=== PATIENT | female | born 1955 | race African-American/Black ===

== ENCOUNTER 2017-06-20 06:01 | Inpatient (IN) ==
[2017-06-15 11:44] LABS: Basophils # 0.1 10*3/uL (0.0-0.2); Eosinophils # 0.1 10*3/uL (0.0-0.87); Hematocrit 37.5 VOL% (35.7-47.0); Hemoglobin 11.8 GM/DL (12.0-16.0); Immature Granulocytes % 0.4 %; Immature Granulocytes Absolute 0.03 #; Lymphocytes # 3.6 10*3/uL (1.4-4.0); Lymphocytes % 52.2 % (21.3-54.2); Mean Corpuscular HGB Conc 31.5 GM/DL (32-36); Mean Corpuscular Hemoglobin 26 PG (27-34); Mean Corpuscular Volume 81.5 FL (87-102); Mean Platelet Volume 10.4 FL (9.6-12.0); Monocytes # 0.6 10*3/uL (0.11-0.8); Monocytes % 8.3 % (1.7-12.7); Neutrophils # 2.6 10*3/uL (1.4-7.4); Neutrophils % 37.1 % (38.7-73.9); Platelet Count 246 T/CUMM (130-400); Red Cell Distribution Width 14.3 % (9.3-17.3)
[2017-06-15 11:49] LABS: Apearance,Urine CLEAR (Clear); Bilirubin,Urine Negative (Negative); Blood, Urine Moderate mg/dL (Negative); Glucose,Urine (UA) Negative (Negative); Ketones,Urine Negative (Negative); Mucus,Urine Occasional /LPF (Occasional); Nitrite,Urine Negative (Negative); Protein,Urine 30 MG/DL; RBC,Urine 50 /HPF (0-4); Squamous Epithelial Cell,Urine Occasional /HPF (0-10); Urine Color Yellow (Yellow); Urine Urobilinogen < 2.0 EU/DL (0.2-1.0); WBC,Urine 3 /HPF (0-6)
[2017-06-15 12:08] LABS: Eosinophils 1 % (0-10); Hypochromasia 1+; Lymphocytes 55 % (20-55); Platelet Estimate Normal; Segmented Neutrophils 34 % (50-85); Total Cells Counted 100
[~2017-06-20 06:01] MED LIST: DIAZEPAM 5 MG TABLET PO ONE; FAMOTIDINE 20 MG TABLET PO ONE
[2017-06-20] MEDS ORDERED: SODIUM CHLORIDE 0.9% 50 ML IV ONE (06:03)
[2017-06-20] MEDS ORDERED: DIAZEPAM 5 MG TABLET ONE (06:04)
[2017-06-20] MEDS ORDERED: FAMOTIDINE 20 MG TABLET ONE (06:04)
[2017-06-20] MEDS ORDERED: ALBUTEROL/IPRATROPIUM 3 ML NEB RESP TX ONE (06:39)
[2017-06-20] MEDS: LACTATED RINGERS 1,000 ML IV SCH ×2 (07:00→19:01)
[2017-06-20] MEDS ORDERED: cefOXitin 2,000 MG in SYRINGE 1 EACH IV ONE (07:00)
[2017-06-20] MEDS ORDERED: TISSUE ADHESIVE 1 EACH APPLICATOR TOP ONE (07:57)
[2017-06-20 08:03] LABS: Apearance,Urine CLEAR (Clear); Bilirubin,Urine Negative (Negative); Blood, Urine Negative (Negative); Glucose,Urine (UA) Negative (Negative); Ketones,Urine Negative (Negative); Nitrite,Urine Negative (Negative); Protein,Urine Negative; RBC,Urine 1 /HPF (0-4); Squamous Epithelial Cell,Urine Occasional /HPF (0-10); Urine Color Straw (Yellow); Urine Urobilinogen < 2.0 EU/DL (0.2-1.0); WBC,Urine <1 /HPF (0-6)
[2017-06-20] MEDS ORDERED: ALBUMIN 5% 12.5 GM/250 ML VIAL IV ONE (12:03)
[2017-06-20] MEDS ORDERED: PROPOFOL 200 MG/20 ML VIAL IV ONE (12:03)
[2017-06-20] MEDS ORDERED: MIDAZOLAM 2 MG/2 ML VIAL ONE (12:03)
[2017-06-20] MEDS ORDERED: SEVOFLURANE 1 UNIT/15 MINUTE INH ONE (12:03)
[2017-06-20] MEDS ORDERED: ACETAMINOPHEN 1,000 MG/100 ML VIAL IV ONE (12:04)
[2017-06-20] MEDS ORDERED: GLYCOPYRROLATE 0.4 MG/2 ML VIAL ONE (12:04)
[2017-06-20] MEDS ORDERED: fentaNYL 100 MCG/2 ML VIAL ONE (12:04)
[2017-06-20] MEDS ORDERED: ONDANSETRON 4 MG/2 ML VIAL ONE ×2 (12:04→12:11)
[2017-06-20] MEDS ORDERED: NEOSTIGMINE 10 MG/10 ML VIAL ONE (12:04)
[2017-06-20] MEDS ORDERED: ROCURONIUM 100 MG/10 ML VIAL IV ONE (12:05)
[2017-06-20] MEDS ORDERED: LACTATED RINGERS 2,000 ML IV ONE (12:05)
[2017-06-20] MEDS ORDERED: ALBUTEROL INHALER 8 GM INH ONE (12:05)
[2017-06-20] MEDS ORDERED: HYDROmorphone 2 MG/1 ML VIAL ONE (12:11)
[2017-06-20] MEDS: HYDROmorphone 2 MG/1 ML VIAL IV PRN ×6 (12:11→20:29)
[2017-06-20] MEDS ORDERED: ONDANSETRON 4 MG/2 ML VIAL IV PRN (12:14)
[2017-06-20] MEDS ORDERED: cefOXitin 1,000 MG in SYRINGE 1 EACH IV SCH (18:30)
[2017-06-20] MEDS ORDERED: BENZOCAINE/MENTHOL LOZENGE 18/BOX PO PRN (19:40)
[2017-06-20] MEDS ORDERED: IBUPROFEN 800 MG TABLET PO PRN (19:40)
[2017-06-20] MEDS ORDERED: GLUCAGON 1 MG VIAL IM PRN (19:44)
[2017-06-20] MEDS ORDERED: DEXTROSE 50% 25 GM/50 ML VIAL IV PRN (19:44)
[2017-06-20] MEDS ORDERED: LACTATED RINGERS 1,000 ML IV SCH (20:00)
[2017-06-20] MEDS: ONDANSETRON 4 MG/2 ML VIAL IV PRN (20:26)
[2017-06-20] MEDS: INSULIN REGULAR 100 UNIT/ML SUBCUT SCH (20:29)
[2017-06-20] MEDS: SIMETHICONE CHEW 80 MG TABLET PO PRN (22:08)
[2017-06-21] MEDS: ONDANSETRON 4 MG/2 ML VIAL IV PRN (01:01)
[2017-06-21] MEDS: HYDROmorphone 2 MG/1 ML VIAL IV PRN ×2 (01:03→04:02)
[2017-06-21] MEDS: LACTATED RINGERS 1,000 ML IV SCH ×3 (02:18→21:55)
[2017-06-21] MEDS: ceFAZolin 1,000 MG in SYRINGE 1 EACH IV SCH ×3 (02:19→14:28)
[2017-06-21] MEDS: SIMETHICONE CHEW 80 MG TABLET PO PRN ×2 (04:09→21:36)
[2017-06-21 05:44] LABS: Basophils % 0.3 % (0.0-0.8); Hematocrit 27.2 VOL% (35.7-47.0); Immature Granulocytes % 0.3 %; Immature Granulocytes Absolute 0.03 #; Lymphocytes # 2.1 10*3/uL (1.4-4.0); Mean Corpuscular HGB Conc 33.1 GM/DL (32-36); Mean Corpuscular Hemoglobin 27 PG (27-34); Mean Corpuscular Volume 80.5 FL (87-102); Mean Platelet Volume 10.6 FL (9.6-12.0); Monocytes # 1.1 10*3/uL (0.11-0.8); Monocytes % 10.4 % (1.7-12.7); Platelet Count 192 T/CUMM (130-400); Red Blood Count 3.38 MC/CUMM (3.8-5.5); Red Cell Distribution Width 14.5 % (9.3-17.3); White Blood Count 10.2 T/CUMM (4-12)
[2017-06-21 06:05] LABS: Band Neutrophils 1 % (0-10); Hypochromasia 1+; Lymphocytes 21 % (20-55); Platelet Estimate Adequate; Segmented Neutrophils 66 % (50-85); Total Cells Counted 100
[2017-06-21 06:06] LABS: Microcytosis Slight
[2017-06-21] MEDS: INSULIN REGULAR 100 UNIT/ML SUBCUT SCH (07:39)
[2017-06-21] MEDS: oxyCODONE/ACETAMINOPHEN 5-325 MG TABLET PO PRN ×2 (10:27→17:17)
[2017-06-21] MEDS: metFORMIN 500 MG TABLET PO SCH ×2 (11:30→18:48)
[2017-06-21] MEDS: PREGABALIN 75 MG CAPSULE PO SCH ×2 (14:31→21:35)
[2017-06-21] MEDS: MAGNESIUM HYDROXIDE SUSP 30 ML UDCUP PO PRN ×2 (14:32→21:36)
[2017-06-21] MEDS: ACETAMINOPHEN 325 MG TABLET PO PRN ×2 (17:16→21:37)
[2017-06-21] MEDS: DOCUSATE SODIUM 100 MG CAPSULE PO PRN (21:36)
[2017-06-21] MEDS: PRAVASTATIN 40 MG TABLET PO SCH (21:37)
[2017-06-22] MEDS: oxyCODONE/ACETAMINOPHEN 5-325 MG TABLET PO PRN (02:57)
[2017-06-22] MEDS ORDERED: ALBUTEROL 2.5 MG/3 ML NEB RESP TX PRN (05:58)
[2017-06-22] MEDS ORDERED: metFORMIN 500 MG TABLET PO SCH (07:09)
[2017-06-22] MEDS ORDERED: OLMESARTAN 20 MG TABLET PO SCH (09:00)
[2017-06-22] MEDS ORDERED: KETOROLAC 30 MG/1 ML VIAL ONE (09:55)
[2017-06-22] MEDS: KETOROLAC 30 MG/1 ML VIAL IV SCH ×2 (10:10→15:15)
[2017-06-22] MEDS: MAGNESIUM HYDROXIDE SUSP 30 ML UDCUP PO PRN (10:10)
[2017-06-22] MEDS: PREGABALIN 75 MG CAPSULE PO SCH ×3 (10:11→21:50)
[2017-06-22] MEDS: DOCUSATE SODIUM 100 MG CAPSULE PO PRN (10:12)
[2017-06-22] MEDS: BISACODYL 10 MG SUPP RECTAL PRN (11:45)
[2017-06-22 13:09] LABS: Bilirubin,Total 0.5 MG/DL (0.2-1.0); Calcium 8.5 MG/DL (8.5-10.1); Osmolality,Calculated 277.2 MOS/KG (273-304); Potassium 3.8 MMOL/L (3.5-5.1); Total Protein 6.4 G/DL (6.4-8.3)
[2017-06-22] MEDS: SODIUM CHLORIDE 0.9% 1,000 ML IV SCH (16:30)
[2017-06-22] MEDS ORDERED: METOCLOPRAMIDE 10 MG/2 ML VIAL IV SCH (17:00)
[2017-06-22] MEDS: PANTOPRAZOLE 40 MG VIAL IV SCH ×2 (17:45→22:03)
[2017-06-22] MEDS: ONDANSETRON 4 MG/2 ML VIAL IV PRN ×2 (17:55→22:04)
[2017-06-22 19:01] LABS: Basophils % 0.3 % (0.0-0.8); Eosinophils % 0.1 % (0.00-10.9); Hematocrit 30.3 VOL% (35.7-47.0); Hemoglobin 9.2 GM/DL (12.0-16.0); Immature Granulocytes % 0.6 %; Immature Granulocytes Absolute 0.07 #; Lymphocytes # 2.1 10*3/uL (1.4-4.0); Lymphocytes % 17.5 % (21.3-54.2); Mean Corpuscular HGB Conc 30.4 GM/DL (32-36); Mean Corpuscular Hemoglobin 26 PG (27-34); Mean Corpuscular Volume 84.9 FL (87-102); Mean Platelet Volume 10.8 FL (9.6-12.0); Monocytes # 1.5 10*3/uL (0.11-0.8); Monocytes % 12.4 % (1.7-12.7); NRBC # 0.02 10*3/uL; Neutrophils # 8.1 10*3/uL (1.4-7.4); Neutrophils % 69.1 % (38.7-73.9); Platelet Count 231 T/CUMM (130-400); Red Blood Count 3.57 MC/CUMM (3.8-5.5); Red Cell Distribution Width 14.7 % (9.3-17.3); White Blood Count 11.7 T/CUMM (4-12)
[2017-06-22 19:43] LABS: Band Neutrophils 5 % (0-10); Hypochromasia 2+; Lymphocytes 22 % (20-55); Platelet Estimate Normal; Segmented Neutrophils 59 % (50-85); Total Cells Counted 100
[2017-06-22 21:37] LABS: ABG Base Excess 5.1 MMOL/L (-2.5-2.5); ABG HCO3 28.9 MMOL/L (20-26); ABG Oxygen Saturation 89.3 % (95-100); ABG PCO2 50.8 MM HG (35-48); ABG PH 7.392 (7.35-7.45); ABG TCO2 28.7 MMOL/L (23-27); Allen Test Positive
[2017-06-22] MEDS: PRAVASTATIN 40 MG TABLET PO SCH (21:50)
[2017-06-22 22:00] LABS: Basophils % 0.5 % (0.0-0.8); Hematocrit 26.5 VOL% (35.7-47.0); Hemoglobin 8.5 GM/DL (12.0-16.0); Immature Granulocytes % 0.7 %; Immature Granulocytes Absolute 0.05 #; Lymphocytes # 1.4 10*3/uL (1.4-4.0); Lymphocytes % 18.1 % (21.3-54.2); Mean Corpuscular HGB Conc 32.1 GM/DL (32-36); Mean Corpuscular Hemoglobin 26 PG (27-34); Mean Corpuscular Volume 82.3 FL (87-102); Mean Platelet Volume 10.8 FL (9.6-12.0); Monocytes % 13.5 % (1.7-12.7); Neutrophils # 5.1 10*3/uL (1.4-7.4); Neutrophils % 67.2 % (38.7-73.9); Platelet Count 190 T/CUMM (130-400); Red Blood Count 3.22 MC/CUMM (3.8-5.5); Red Cell Distribution Width 14.6 % (9.3-17.3); White Blood Count 7.6 T/CUMM (4-12)
[2017-06-22] MEDS ORDERED: DEXTROSE 50% 25 GM/50 ML VIAL IV PRN (22:10)
[2017-06-22] MEDS ORDERED: GLUCAGON 1 MG VIAL IM PRN (22:10)
[2017-06-22] MEDS ORDERED: hydrALAZINE 20 MG/1 ML VIAL IV PRN (22:13)
[2017-06-22 22:35] LABS: Lactic Acid 1.8 MMOL/L (0.4-2.0)
[2017-06-22 22:45] LABS: Alanine Aminotransferase 13 U/L (13-56); Alkaline Phosphatase 62 U/L (45-117); Aspartate Amino Transferase 28 U/L (0-37); Blood Urea Nitrogen 25 MG/DL (7-18); Calcium 7.7 MG/DL (8.5-10.1); Glucose 263 MG/DL (74-106); Osmolality,Calculated 280.2 MOS/KG (273-304); Potassium 5.1 MMOL/L (3.5-5.1); Sodium 134 MMOL/L (136-145); Total Protein 6.3 G/DL (6.4-8.3); Troponin I Only 0.026 NG/ML (0.00-0.045)
[2017-06-22 23:00] LABS: Band Neutrophils 11 % (0-10); Lymphocytes 21 % (20-55); Metamyelocytes 4 %; Myelocytes 1 %; Segmented Neutrophils 53 % (50-85); Total Cells Counted 100
[2017-06-22 23:01] LABS: Hypochromasia 3+; Platelet Estimate Normal
[2017-06-22] MEDS: LACTATED RINGERS 1,000 ML IV SCH (23:10)
[2017-06-22] MEDS: HEPARIN DRIP 25,000 UNITS/500 ML PREMIX IV SCH (23:19)
[2017-06-23] MEDS: INSULIN LISPRO 100 UNIT/ML SUBCUT SCH ×4 (00:05→17:29)
[2017-06-23] MEDS: PROMETHAZINE INJ 25 MG in SODIUM CHLORIDE 0.9% 50 ML IV PRN (01:56)
[2017-06-23] MEDS: SODIUM CHLORIDE 0.9% 1,000 ML IV SCH ×5 (03:10→20:32)
[2017-06-23] MEDS: ONDANSETRON 4 MG/2 ML VIAL IV PRN ×2 (03:11→09:31)
[2017-06-23 05:47] LABS: Basophils % 0.7 % (0.0-0.8); Hematocrit 26.3 VOL% (35.7-47.0); Hemoglobin 8.5 GM/DL (12.0-16.0); Immature Granulocytes % 0.7 %; Immature Granulocytes Absolute 0.04 #; Lymphocytes # 1.8 10*3/uL (1.4-4.0); Lymphocytes % 29.5 % (21.3-54.2); Mean Corpuscular HGB Conc 32.3 GM/DL (32-36); Mean Corpuscular Hemoglobin 26 PG (27-34); Mean Corpuscular Volume 81.4 FL (87-102); Mean Platelet Volume 10.7 FL (9.6-12.0); Monocytes # 0.9 10*3/uL (0.11-0.8); Monocytes % 15.6 % (1.7-12.7); Neutrophils # 3.2 10*3/uL (1.4-7.4); Neutrophils % 53.5 % (38.7-73.9); Platelet Count 226 T/CUMM (130-400); Red Blood Count 3.23 MC/CUMM (3.8-5.5); Red Cell Distribution Width 14.6 % (9.3-17.3)
[2017-06-23 05:56] LABS: PT Patient Result 10.5 SECS
[2017-06-23 06:30] LABS: Band Neutrophils 14 % (0-10); Hypochromasia 1+; Lymphocytes 35 % (20-55); Microcytosis 1+; Platelet Estimate Normal; Promyelocytes 1 %; Segmented Neutrophils 35 % (50-85); Total Cells Counted 100
[2017-06-23 06:41] LABS: Osmolality,Calculated 281.1 MOS/KG (273-304); Potassium 4.2 MMOL/L (3.5-5.1)
[2017-06-23 06:52] LABS: % Iron Saturation 5.2 % (18-50); Ferritin 421.4 ng/ml (8-252); Thyroid Stimulating Hormone 1.24 uIU/ml (0.358-3.74)
[2017-06-23] MEDS: PREGABALIN 75 MG CAPSULE PO SCH ×3 (08:24→20:28)
[2017-06-23] MEDS: LEVOFLOXACIN INJ 500 MG in PREMIX 1 EACH IV SCH (08:29)
[2017-06-23] MEDS: CLINDAMYCIN INJ 600 MG in PREMIX 1 EACH IV SCH ×2 (08:29→15:46)
[2017-06-23] MEDS: PANTOPRAZOLE 40 MG VIAL IV SCH ×2 (08:29→20:28)
[2017-06-23] MEDS: HYDROmorphone 2 MG/1 ML VIAL IV PRN (09:25)
[2017-06-23 10:12] LABS: PT Patient Result 10.7 SECS
[2017-06-23 10:16] LABS: Partial Thromboplastin Time 96.9 SECS (0-40)
[2017-06-23 10:38] LABS: Apearance,Urine CLOUDY (Clear); Bilirubin,Urine Negative (Negative); Blood, Urine Moderate mg/dL (Negative); Glucose,Urine (UA) Negative (Negative); Ketones,Urine Negative (Negative); Mucus,Urine Occasional /LPF (Occasional); Nitrite,Urine Negative (Negative); Protein,Urine Negative; RBC,Urine 3 /HPF (0-4); Squamous Epithelial Cell,Urine Moderate /HPF (0-10); Urine Color Yellow (Yellow); Urine Specific Gravity 1.043 (1.001-1.035); Urine Urobilinogen < 2.0 EU/DL (0.2-1.0); WBC,Urine 3 /HPF (0-6)
[2017-06-23] MEDS: HEPARIN DRIP 25,000 UNITS/500 ML PREMIX IV SCH (11:22)
[2017-06-23] MEDS: PRAVASTATIN 40 MG TABLET PO SCH (20:28)
[2017-06-23 22:32] LABS: PT Patient Result 10.4 SECS
[2017-06-23 22:41] LABS: Partial Thromboplastin Time 88.8 SECS (0-40)
[2017-06-24] MEDS: ONDANSETRON 4 MG/2 ML VIAL IV PRN ×2 (00:41→16:26)
[2017-06-24] MEDS: CLINDAMYCIN INJ 600 MG in PREMIX 1 EACH IV SCH ×4 (00:42→23:48)
[2017-06-24] MEDS: HYDROmorphone 2 MG/1 ML VIAL IV PRN ×2 (00:42→23:47)
[2017-06-24] MEDS: INSULIN LISPRO 100 UNIT/ML SUBCUT SCH ×5 (00:50→23:35)
[2017-06-24] MEDS: HEPARIN DRIP 25,000 UNITS/500 ML PREMIX IV SCH ×2 (03:47→23:36)
[2017-06-24] MEDS: SODIUM CHLORIDE 0.9% 1,000 ML IV SCH ×3 (04:33→22:48)
[2017-06-24 05:13] LABS: Basophils # 0.1 10*3/uL (0.0-0.2); Basophils % 0.8 % (0.0-0.8); Eosinophils # 0.1 10*3/uL (0.0-0.87); Eosinophils % 0.9 % (0.00-10.9); Hemoglobin 8.1 GM/DL (12.0-16.0); Immature Granulocytes % 2.6 %; Immature Granulocytes Absolute 0.24 #; Lymphocytes # 2.2 10*3/uL (1.4-4.0); Lymphocytes % 23.6 % (21.3-54.2); Mean Corpuscular HGB Conc 31.2 GM/DL (32-36); Mean Corpuscular Hemoglobin 26 PG (27-34); Mean Corpuscular Volume 84.4 FL (87-102); Mean Platelet Volume 10.9 FL (9.6-12.0); Monocytes # 1.6 10*3/uL (0.11-0.8); Monocytes % 17.3 % (1.7-12.7); NRBC # 0.04 10*3/uL; Neutrophils # 5.1 10*3/uL (1.4-7.4); Neutrophils % 54.8 % (38.7-73.9); Platelet Count 279 T/CUMM (130-400); Red Blood Count 3.08 MC/CUMM (3.8-5.5); Red Cell Distribution Width 14.6 % (9.3-17.3); White Blood Count 9.3 T/CUMM (4-12)
[2017-06-24 05:36] LABS: Band Neutrophils 11 % (0-10); Eosinophils 2 % (0-10); Giant Platelets Few; Hypochromasia 1+; Lymphocytes 23 % (20-55); Microcytosis Slight; Ovalocytes Slight; Platelet Estimate Adequate; Segmented Neutrophils 46 % (50-85); Total Cells Counted 100
[2017-06-24] MEDS: LACTATED RINGERS 1,000 ML IV SCH ×6 (05:37→19:28)
[2017-06-24 05:59] LABS: Risk Ratio 4.54; VLDL CHOLESTEROL 30.8 MG/DL
[2017-06-24 06:06] LABS: Calcium 7.9 MG/DL (8.5-10.1); Osmolality,Calculated 282.7 MOS/KG (273-304); Potassium 4.4 MMOL/L (3.5-5.1)
[2017-06-24 08:12] LABS: ABG Base Excess 2.1 MMOL/L (-2.5-2.5); ABG HCO3 25.7 MMOL/L (20-26); ABG Oxygen Saturation 55.5 % (95-100); ABG PCO2 53.1 MM HG (35-48); ABG PH 7.339 (7.35-7.45); ABG TCO2 26.8 MMOL/L (23-27); Allen Test Positive
[2017-06-24 08:17] LABS: ABG PO2 32.1 MM HG (80-95)
[2017-06-24] MEDS: PREGABALIN 75 MG CAPSULE PO SCH ×3 (11:25→20:18)
[2017-06-24] MEDS: PANTOPRAZOLE 40 MG VIAL IV SCH ×2 (11:44→20:17)
[2017-06-24] MEDS: LEVOFLOXACIN INJ 500 MG in PREMIX 1 EACH IV SCH (12:14)
[2017-06-24] MEDS: ENOXAPARIN 40 MG/0.4 ML SYRINGE SUBCUT SCH (19:24)
[2017-06-24] MEDS: PROMETHAZINE INJ 25 MG in SODIUM CHLORIDE 0.9% 50 ML IV PRN (19:50)
[2017-06-24] MEDS: PRAVASTATIN 40 MG TABLET PO SCH (20:18)
[2017-06-24] MEDS ORDERED: PROMETHAZINE 25 MG/1 ML VIAL ONE (22:13)
[2017-06-25] MEDS: PROMETHAZINE INJ 25 MG in SODIUM CHLORIDE 0.9% 50 ML IV PRN (02:33)
[2017-06-25 02:49] LABS: Basophils # 0.1 10*3/uL (0.0-0.2); Basophils % 0.8 % (0.0-0.8); Eosinophils # 0.1 10*3/uL (0.0-0.87); Eosinophils % 0.8 % (0.00-10.9); Hematocrit 27.6 VOL% (35.7-47.0); Hemoglobin 8.2 GM/DL (12.0-16.0); Immature Granulocytes % 7.3 %; Immature Granulocytes Absolute 0.85 #; Lymphocytes # 2.3 10*3/uL (1.4-4.0); Lymphocytes % 19.5 % (21.3-54.2); Mean Corpuscular HGB Conc 29.7 GM/DL (32-36); Mean Corpuscular Hemoglobin 25 PG (27-34); Mean Corpuscular Volume 84.7 FL (87-102); Mean Platelet Volume 10.1 FL (9.6-12.0); Monocytes # 1.5 10*3/uL (0.11-0.8); Monocytes % 12.9 % (1.7-12.7); NRBC # 0.04 10*3/uL; Neutrophils # 6.8 10*3/uL (1.4-7.4); Neutrophils % 58.7 % (38.7-73.9); Platelet Count 312 T/CUMM (130-400); Red Blood Count 3.26 MC/CUMM (3.8-5.5); Red Cell Distribution Width 14.5 % (9.3-17.3); White Blood Count 11.6 T/CUMM (4-12)
[2017-06-25 05:41] LABS: Calcium 7.9 MG/DL (8.5-10.1); Osmolality,Calculated 284.3 MOS/KG (273-304); Potassium 4.1 MMOL/L (3.5-5.1)
[2017-06-25] MEDS: LACTATED RINGERS 1,000 ML IV SCH ×2 (06:31→10:06)
[2017-06-25] MEDS: INSULIN LISPRO 100 UNIT/ML SUBCUT SCH ×3 (06:31→18:31)
[2017-06-25 06:50] LABS: Band Neutrophils 1 % (0-10); Eosinophils 2 % (0-10); Lymphocytes 24 % (20-55); Segmented Neutrophils 58 % (50-85); Total Cells Counted 100
[2017-06-25 06:51] LABS: Hypochromasia Slight; Platelet Estimate Normal; Polychromasia Slight; Target Cells Few
[2017-06-25] MEDS: PANTOPRAZOLE 40 MG VIAL IV SCH ×2 (09:51→21:56)
[2017-06-25] MEDS: CLINDAMYCIN INJ 600 MG in PREMIX 1 EACH IV SCH ×2 (10:01→18:31)
[2017-06-25] MEDS: PREGABALIN 75 MG CAPSULE PO SCH ×3 (10:03→21:47)
[2017-06-25] MEDS: SODIUM CHLORIDE 0.9% 1,000 ML IV SCH ×2 (10:07→18:10)
[2017-06-25 11:21] LABS: ABG Base Excess 2.5 MMOL/L (-2.5-2.5); ABG HCO3 26.7 MMOL/L (20-26); ABG Oxygen Saturation 98.8 % (95-100); ABG PCO2 43.8 MM HG (35-48); ABG PH 7.407 (7.35-7.45); ABG TCO2 25.6 MMOL/L (23-27)
[2017-06-25] MEDS: LEVOFLOXACIN INJ 500 MG in PREMIX 1 EACH IV SCH (12:30)
[2017-06-25] MEDS: ENOXAPARIN 40 MG/0.4 ML SYRINGE SUBCUT SCH (18:28)
[2017-06-25] MEDS: PRAVASTATIN 40 MG TABLET PO SCH (21:47)
[2017-06-26] MEDS: INSULIN LISPRO 100 UNIT/ML SUBCUT SCH ×4 (00:17→17:07)
[2017-06-26] MEDS: SODIUM CHLORIDE 0.9% 1,000 ML IV SCH ×3 (02:50→23:57)
[2017-06-26] MEDS: CLINDAMYCIN INJ 600 MG in PREMIX 1 EACH IV SCH ×4 (02:51→23:54)
[2017-06-26 04:24] LABS: ABG Base Excess 1.4 MMOL/L (-2.5-2.5); ABG HCO3 25.6 MMOL/L (20-26); ABG Oxygen Saturation 96.1 % (95-100); ABG PCO2 48.2 MM HG (35-48); ABG PO2 81.5 MM HG (80-95); ABG TCO2 25.4 MMOL/L (23-27); Allen Test Positive
[2017-06-26 06:06] LABS: Basophils # 0.1 10*3/uL (0.0-0.2); Basophils % 0.7 % (0.0-0.8); Eosinophils # 0.1 10*3/uL (0.0-0.87); Eosinophils % 0.7 % (0.00-10.9); Hematocrit 26.1 VOL% (35.7-47.0); Hemoglobin 8.3 GM/DL (12.0-16.0); Immature Granulocytes % 10.3 %; Lymphocytes # 3.3 10*3/uL (1.4-4.0); Lymphocytes % 24.5 % (21.3-54.2); Mean Corpuscular HGB Conc 31.8 GM/DL (32-36); Mean Corpuscular Hemoglobin 26 PG (27-34); Mean Corpuscular Volume 82.6 FL (87-102); Mean Platelet Volume 10.1 FL (9.6-12.0); Monocytes # 1.4 10*3/uL (0.11-0.8); NRBC # 0.07 10*3/uL; Neutrophils # 7.3 10*3/uL (1.4-7.4); Neutrophils % 53.8 % (38.7-73.9); Platelet Count 331 T/CUMM (130-400); Red Blood Count 3.16 MC/CUMM (3.8-5.5); Red Cell Distribution Width 14.6 % (9.3-17.3); White Blood Count 13.6 T/CUMM (4-12)
[2017-06-26 06:34] LABS: Osmolality,Calculated 287.8 MOS/KG (273-304); Potassium 3.7 MMOL/L (3.5-5.1)
[2017-06-26 07:15] LABS: Band Neutrophils 5 % (0-10); Eosinophils 2 % (0-10); Hypochromasia 1+; Lymphocytes 22 % (20-55); Microcytosis Slight; Myelocytes 1 %; Nucleated Red Blood Cells 1 (0-5); Ovalocytes Slight; Platelet Estimate Adequate; Segmented Neutrophils 58 % (50-85); Total Cells Counted 100
[2017-06-26] MEDS: PANTOPRAZOLE 40 MG VIAL IV SCH ×2 (10:15→21:15)
[2017-06-26] MEDS: LEVOFLOXACIN INJ 500 MG in PREMIX 1 EACH IV SCH (13:27)
[2017-06-26] MEDS: PREGABALIN 75 MG CAPSULE PO SCH ×3 (13:27→21:11)
[2017-06-26] MEDS: ENOXAPARIN 40 MG/0.4 ML SYRINGE SUBCUT SCH (17:41)
[2017-06-26] MEDS: LACTATED RINGERS 1,000 ML IV SCH (18:40)
[2017-06-26] MEDS: PRAVASTATIN 40 MG TABLET PO SCH (21:11)
[2017-06-26] MEDS: HYDROmorphone 2 MG/1 ML VIAL IV PRN ×2 (22:26)
[2017-06-27] MEDS: HYDROmorphone 2 MG/1 ML VIAL IV PRN (05:29)
[2017-06-27 07:20] LABS: Basophils # 0.1 10*3/uL (0.0-0.2); Basophils % 0.6 % (0.0-0.8); Eosinophils # 0.1 10*3/uL (0.0-0.87); Eosinophils % 0.4 % (0.00-10.9); Hematocrit 26.3 VOL% (35.7-47.0); Immature Granulocytes % 10.4 %; Immature Granulocytes Absolute 1.46 #; Lymphocytes # 3.4 10*3/uL (1.4-4.0); Lymphocytes % 24.2 % (21.3-54.2); Mean Corpuscular HGB Conc 30.4 GM/DL (32-36); Mean Corpuscular Hemoglobin 26 PG (27-34); Mean Corpuscular Volume 83.8 FL (87-102); Mean Platelet Volume 9.6 FL (9.6-12.0); Monocytes # 1.4 10*3/uL (0.11-0.8); Monocytes % 9.8 % (1.7-12.7); NRBC # 0.06 10*3/uL; Neutrophils # 7.7 10*3/uL (1.4-7.4); Neutrophils % 54.6 % (38.7-73.9); Platelet Count 340 T/CUMM (130-400); Red Blood Count 3.14 MC/CUMM (3.8-5.5); Red Cell Distribution Width 14.7 % (9.3-17.3)
[2017-06-27] MEDS: INSULIN LISPRO 100 UNIT/ML SUBCUT SCH ×4 (07:32→20:08)
[2017-06-27 07:40] LABS: Hypochromasia 1+; Lymphocytes 24 % (20-55); Microcytosis 1+; Myelocytes 1 %; Promyelocytes 1 %; Segmented Neutrophils 63 % (50-85); Total Cells Counted 100
[2017-06-27 07:41] LABS: Ovalocytes Slight; Platelet Estimate Normal
[2017-06-27] MEDS: PANTOPRAZOLE 40 MG VIAL IV SCH ×2 (08:56→21:53)
[2017-06-27] MEDS: SODIUM CHLORIDE 0.9% 1,000 ML IV SCH ×2 (09:05→17:03)
[2017-06-27] MEDS: CLINDAMYCIN INJ 600 MG in PREMIX 1 EACH IV SCH ×2 (09:16→17:30)
[2017-06-27] MEDS: PREGABALIN 75 MG CAPSULE PO SCH ×3 (09:16→21:50)
[2017-06-27] MEDS: BISACODYL 10 MG SUPP RECTAL PRN (20:02)
[2017-06-27] MEDS: LEVOFLOXACIN INJ 500 MG in PREMIX 1 EACH IV SCH (21:47)
[2017-06-27] MEDS: ACETAMINOPHEN 325 MG TABLET PO PRN (21:50)
[2017-06-27] MEDS: PRAVASTATIN 40 MG TABLET PO SCH (21:50)
[2017-06-27] MEDS: ENOXAPARIN 40 MG/0.4 ML SYRINGE SUBCUT SCH (21:50)
[2017-06-28] MEDS: INSULIN LISPRO 100 UNIT/ML SUBCUT SCH ×4 (00:12→17:53)
[2017-06-28] MEDS: CLINDAMYCIN INJ 600 MG in PREMIX 1 EACH IV SCH ×3 (01:41→16:10)
[2017-06-28] MEDS: SODIUM CHLORIDE 0.9% 1,000 ML IV SCH ×2 (03:00→11:21)
[2017-06-28 07:43] LABS: Basophils # 0.1 10*3/uL (0.0-0.2); Basophils % 0.4 % (0.0-0.8); Eosinophils # 0.1 10*3/uL (0.0-0.87); Eosinophils % 0.4 % (0.00-10.9); Hematocrit 26.7 VOL% (35.7-47.0); Hemoglobin 8.5 GM/DL (12.0-16.0); Immature Granulocytes % 10.9 %; Immature Granulocytes Absolute 1.48 #; Lymphocytes # 3.2 10*3/uL (1.4-4.0); Lymphocytes % 23.7 % (21.3-54.2); Mean Corpuscular HGB Conc 31.8 GM/DL (32-36); Mean Corpuscular Hemoglobin 26 PG (27-34); Mean Corpuscular Volume 81.9 FL (87-102); Mean Platelet Volume 9.5 FL (9.6-12.0); Monocytes # 1.2 10*3/uL (0.11-0.8); Monocytes % 8.4 % (1.7-12.7); NRBC # 0.03 10*3/uL; Neutrophils # 7.7 10*3/uL (1.4-7.4); Neutrophils % 56.2 % (38.7-73.9); Platelet Count 360 T/CUMM (130-400); Red Blood Count 3.26 MC/CUMM (3.8-5.5); Red Cell Distribution Width 14.6 % (9.3-17.3); White Blood Count 13.6 T/CUMM (4-12)
[2017-06-28 08:02] LABS: Band Neutrophils 4 % (0-10); Eosinophils 1 % (0-10); Giant Platelets Few; Hypochromasia 1+; Lymphocytes 22 % (20-55); Microcytosis Slight; Myelocytes 1 %; Platelet Estimate Adequate; Segmented Neutrophils 66 % (50-85); Total Cells Counted 100
[2017-06-28] MEDS: PANTOPRAZOLE 40 MG VIAL IV SCH ×2 (09:48→21:15)
[2017-06-28] MEDS: PREGABALIN 75 MG CAPSULE PO SCH ×3 (09:55→21:12)
[2017-06-28] MEDS: ENOXAPARIN 40 MG/0.4 ML SYRINGE SUBCUT SCH (21:12)
[2017-06-28] MEDS: PRAVASTATIN 40 MG TABLET PO SCH (21:12)
[2017-06-28] MEDS: LEVOFLOXACIN INJ 500 MG in PREMIX 1 EACH IV SCH (21:13)
[2017-06-29] MEDS: PROMETHAZINE INJ 25 MG in SODIUM CHLORIDE 0.9% 50 ML IV PRN (01:07)
[2017-06-29] MEDS: INSULIN LISPRO 100 UNIT/ML SUBCUT SCH ×4 (01:28→18:19)
[2017-06-29] MEDS: CLINDAMYCIN INJ 600 MG in PREMIX 1 EACH IV SCH ×3 (02:07→17:58)
[2017-06-29] MEDS: SODIUM CHLORIDE 0.9% 1,000 ML IV SCH ×3 (02:07→22:33)
[2017-06-29] MEDS: PANTOPRAZOLE 40 MG VIAL IV SCH ×2 (09:10→22:33)
[2017-06-29] MEDS: SIMETHICONE CHEW 80 MG TABLET PO PRN ×3 (09:11→18:03)
[2017-06-29] MEDS: PRAVASTATIN 40 MG TABLET PO SCH (22:35)
[2017-06-29] MEDS: LEVOFLOXACIN INJ 500 MG in PREMIX 1 EACH IV SCH (22:35)
[2017-06-29] MEDS: ENOXAPARIN 40 MG/0.4 ML SYRINGE SUBCUT SCH (22:35)
[2017-06-30] MEDS: INSULIN LISPRO 100 UNIT/ML SUBCUT SCH ×3 (01:32→13:42)
[2017-06-30] MEDS: CLINDAMYCIN INJ 600 MG in PREMIX 1 EACH IV SCH ×2 (01:32→09:52)
[2017-06-30] MEDS: SODIUM CHLORIDE 0.9% 1,000 ML IV SCH ×2 (02:10→11:05)
[2017-06-30] MEDS: SIMETHICONE CHEW 80 MG TABLET PO PRN (06:22)
[2017-06-30 06:48] LABS: Calcium 7.6 MG/DL (8.5-10.1); Osmolality,Calculated 280.4 MOS/KG (273-304); Potassium 3.4 MMOL/L (3.5-5.1)
[2017-06-30] MEDS: PANTOPRAZOLE 40 MG VIAL IV SCH (09:48)
[2017-06-30 11:51] VITALS: BP 131/70
== END 2017-06-30 14:50 | disposition home health service (06) | DRG 742 ==
LOC: N.OR 06:01 → N.SDSINP 06:04 → N.OB 13:36 → N.CC 06-22 21:23 → N.OB 06-25 16:47 → N.2E 06-26 15:55
PROVIDERS: ADMIT Obstetrics & Gynecology; ATTEND Obstetrics & Gynecology